=== PATIENT | male | born 1945 | race Caucasian/White ===

== ENCOUNTER 2017-02-26 10:42 | Emergency (ER) | payer OTHER, MEDICARE ==
[~2017-02-26] VITALS: Ht 181.6 cm; Wt 91.9 kg
[~2017-02-26 10:42] MED LIST: ASPI81TA28 PO; ONDA4TAB10 SL; PRLSR20 PO
[2017-02-26 10:58] VITALS: TEMP 36.8; Ht 181.6 cm; Wt 91.9 kg
[2017-02-26] MEDS ORDERED: LISIPOW PO (11:06)
[2017-02-26] MEDS ORDERED: MULT-506 PO (11:06)
[2017-02-26] MEDS ORDERED: XYLOCAINE 1%/SOD BICARB 20 ML VIAL INFIL ONE (11:43)
--- NOTE | 2017-02-26 12:31 | DIAGNOSTIC IMAGING REPORT ---
RIGHT KNEE 3 VIEWS CLINICAL HISTORY: Fall with right knee laceration. FINDINGS: AP, crosstable lateral, and sunrise portable views of the right knee are obtained. No prior studies are available for comparison at the time of dictation. The skeletal structures are osteopenic. No fracture is seen. There is advanced degenerative narrowing in the medial and patellofemoral compartments. Moderate narrowing is seen in the lateral compartment. There is bony sclerosis along the weightbearing surface in the medial compartment. There are large medial marginal osteophytes as well as patellar enthesophytes. A joint effusion is noted. Prepatellar soft tissue swelling is observed. IMPRESSION: 1. Soft tissue swelling and joint effusion. No right knee fracture is seen. 2. Osteopenia with advanced arthritic change as above. Electronically signed by: Jose R Poole M.D. 02/26/2017 12:30 PM Dictated Date/Time: 02/26/2017 12:29 PM
[2017-02-26] MEDS ORDERED: CEPH500C2 PO (13:26)
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
[2017-02-26 13:37] VITALS: BP 147/92; PULSE 54; O2SAT 98
== END 2017-02-26 13:38 | disposition home or self-care (01) ==
LOC: C.EDB 10:43 → C.EDD 13:38
DX: S81.011A Laceration without foreign body, right knee, initial encounter (principal); S80.812A Abrasion, left lower leg, initial encounter; V18.0XXA Pedal cycle driver injured in noncollision transport accident in nontraffic accident, initial encounter; W22.8XXA Striking against or struck by other objects, initial encounter; W26.9XXA Contact with unspecified sharp object(s), initial encounter; Y93.55 Activity, bike riding; Y99.8 Other external cause status; I10 Essential (primary) hypertension; Z87.442 Personal history of urinary calculi; Z79.82 Long term (current) use of aspirin; Z79.899 Other long term (current) drug therapy